=== PATIENT | female | born 1990 | race African-American/Black ===

== ENCOUNTER 2016-09-13 02:41 | Emergency (ER) | payer OTHER ==
[2016-09-13 03:23] VITALS: BP 115/72; PULSE 73; TEMP 98.7; BMI 32.9
[2016-09-13 04:17] LABS: URINE APPEARANCE CLEAR; URINE BILIRUBIN NEGATIVE (NEGATIVE); URINE BLOOD NEGATIVE (NEGATIVE); URINE COLOR LTYELLOW; URINE GLUCOSE (UA) NEGATIVE (NEGATIVE); URINE KETONE NEGATIVE (NEGATIVE); URINE LEUK ESTERASE NEGATIVE (NEGATIVE); URINE NITRITE NEGATIVE (NEGATIVE); URINE PROTEIN NEGATIVE (NEGATIVE); URINE UROBILINOGEN NEGATIVE E.U./dl (0.2-1.0)
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
[2016-09-13] MEDS ORDERED: IBUPROFEN 600 MG TABLET (FP) PO ONE (05:11)
[2016-09-13] MEDS ORDERED: METHOCARBAMOL 500 MG TABLET PO ONE (05:11)
== END 2016-09-13 05:11 | disposition home or self-care (01) ==
LOC: JER 02:41
DX: S13.4XXA Sprain of ligaments of cervical spine, initial encounter (principal); V43.52XA Car driver injured in collision with other type car in traffic accident, initial encounter; Y92.411 Interstate highway as the place of occurrence of the external cause; W22.11XA Striking against or struck by driver side automobile airbag, initial encounter; Y93.89 Activity, other specified; Y99.8 Other external cause status
CPT/HCPCS: 70450-TC; 72125-TC; 81003; 87086; 99282-25